=== PATIENT | male | born 2000 | race Hispanic/Latino ===

== ENCOUNTER 2018-02-20 20:16 | Emergency (ER) | payer OTHER, SELFPAY ==
[2018-02-20] MEDS ORDERED: NA CHLORIDE 0.9% 1,000 ML ONE (23:31)
[2018-02-20 23:39] LABS: Absolute Lymphocytes (CBC) 0.6 K/uL (0.7-4.9); Absolute Monocytes 0.6 K/uL (0.1-1.3); Absolute Neutrophil 13.5 K/uL (1.8-8.0); Basophils % 0.4 % (0-1.3); Hematocrit 44.3 % (39.6-49.0); Lymphocytes % 4.2 % (15.3-44.8); MPV 8.4 fL (7.6-11.3); Monocytes % 3.9 % (3.3-12.3); RBC Red Blood Cell Count 4.93 M/uL (4.33-5.43)
[2018-02-20 23:51] LABS: BUN Blood Urea Nitrogen 16 mg/dL (7-18); Bicarbonate 26 mmol/L (21-32); Glucose Level 94 mg/dL (74-106); Magnesium 2.3 mg/dL (1.8-2.4); Potassium 3.9 mmol/L (3.5-5.1); Sodium Level 141 mmol/L (136-145)
[2018-02-20 23:54] LABS: Blood Morphology Comment NOT SEEN (NOT SEEN); Platelet Estimate ADEQ; Urine White Blood Cell Casts OK
[2018-02-21 01:33] LABS: Urine Blood NEGATIVE (NEG); Urine Glucose NEGATIVE (NEG); Urine Protein NEGATIVE (NEG); Urine Specific Gravity 1.025 (1.005-1.030); Urine pH 5.5 (5.0-7.0)
--- NOTE | 2018-02-21 02:34 | ER ---
Nurse's Notes [facility] Name: Luis Vences Age: 17 yrs Sex: Male : 2000 Arrival Date: 02/20/2018 Time: 20:18 Bed 25 Private MD: Diagnosis: Bitten by dog;Laceration of lip and oral cavity without foreign body-due to dog bite;Syncope and collapse Presentation: 02/20 20:24 Presenting complaint: Patient states: He was at home and he stood up quickly, and he aj1 got dizzy and then he fell and when he did his dog bit him in the face. Denies losing consciousness. Denies hitting head. Laceration noted to lower lip, upper lip and to gums, bleeding lightly at this time. Transition of care: patient was not received from another setting of care. Onset of symptoms was February 20, 2018. Risk Assessment: Do you want to hurt yourself or someone else? Patient reports no desire to harm self or others. Initial Sepsis Screen: Does the patient meet any 2 criteria? HR > 90 bpm. No. Patient's initial sepsis screen is negative. Does the patient have a suspected source of infection? Yes: Skin breakdown/wound. Care prior to arrival: None. 20:24 Method Of Arrival: Ambulatory aj1 20:24 Acuity: VIVIEN 4 aj1 Triage Assessment: 20:28 Bite description: bite sustained to gums, upper vermilion border and lower vermilion aj1 border by a dog, animal information: Appearance: appeared well, vaccination(s) is not up to date. General: Appears in no apparent distress. comfortable, Behavior is calm, cooperative, appropriate for age. Pain: Denies pain. Neuro: Level of Consciousness is awake, alert, obeys commands. Cardiovascular: Patient's skin is warm and dry. Respiratory: Airway is patent Respiratory effort is even, unlabored, Respiratory pattern is regular, symmetrical. Historical: - Allergies: 20:28 No Known Allergies; aj1 - Home Meds: 20:28 None [Active]; aj1 - PMHx: 20:28 None; aj1 - Immunization history:: Last tetanus immunization: unknown. - Social history:: Smoking status: Patient/guardian denies using tobacco. - Ebola Screening: : Patient denies travel to an Ebola-affected area in the 21 days before illness onset. Screenin:39 Abuse screen: Denies threats or abuse. Nutritional screening: No deficits noted. ea Tuberculosis screening: No symptoms or risk factors identified. Fall Risk None identified. Assessment: 22:39 General: Appears in no apparent distress. Behavior is calm, cooperative, appropriate ea for age. Pain: Denies pain. Neuro: Level of Consciousness is awake, alert, obeys commands, Oriented to person, place, time, situation. Neuro: Reports dizziness, a syncopal episode. Cardiovascular: Patient's skin is warm and dry. Respiratory: Airway is patent Respiratory effort is even, unlabored, Respiratory pattern is regular, symmetrical, Breath sounds are clear bilaterally. GI: Abdomen is non-distended. Derm: Skin puncture to left lower lip Skin is dry, Skin is normal, Skin temperature is warm. Musculoskeletal: Circulation, motion, and sensation intact. 02/21 00:16 Reassessment: Patient and/or family updated on plan of care and expected duration. Pain ea level reassessed. Patient is alert, oriented x 3, equal unlabored respirations, skin warm/dry/pink. Returned from CT. 01:16 Reassessment: Patient and/or family updated on plan of care and expected duration. Pain ea level reassessed. Patient is alert, oriented x 3, equal unlabored respirations, skin warm/dry/pink. Pt resting with eyes closed, respirations even and unlabored, chest expansions even and symmetrical. No s/s of pain or discomfort noted at this time. Mother at bedside. 02:23 Reassessment: No changes from previously documented assessment. Patient and/or family ea updated on plan of care and expected duration. Pain level reassessed. 02:53 Reassessment: Patient and/or family updated on plan of care and expected duration. Pain ea level reassessed. Patient is alert, oriented x 3, equal unlabored respirations, skin warm/dry/pink. Discharge instructions given to patient and mother, both verbalized the understanding of instruction. Awaiting of IV antibiotic completion. Vital Signs: 02/20 20:28 BP 154 / 89; Pulse 102; Resp 18; Temp 98.0; Pulse Ox 99% on R/A; Weight 68.95 kg (R); aj1 Height 5 ft. 8 in. (172.72 cm) (R); Pain 0/10; 21:57 BP 146 / 83; Pulse 100; Resp 20; Temp 98.0(O); Pulse Ox 99% on R/A; jb5 22:30 BP 130 / 75 Sitting; Pulse 86; Resp 18; Pulse Ox 99% on R/A; ea 22:31 BP 129 / 59 Supine; Pulse 77; Resp 18; Pulse Ox 99% ; ea 22:36 BP 140 / 75 Standing; Pulse 80; Resp 18; Pulse Ox 99% ; ea 23:38 BP 122 / 59; Pulse 70; Resp 18; Pulse Ox 99% on R/A; ea 02/21 00:41 BP 142 / 83; Pulse 65; Resp 18; Pulse Ox 99% on R/A; ea 01:16 BP 129 / 72; Pulse 68; Resp 18; Pulse Ox 99% on R/A; ea 02:22 BP 118 / 68; Pulse 70; Resp 18; Pulse Ox 99% ; ea 02:45 BP 131 / 80; Pulse 80; Resp 19; Pulse Ox 100% ; ea 03:09 BP 127 / 79; Pulse 78; Resp 18; Temp 97.8(O); Pulse Ox 99% ; ea 02/20 20:28 Body Mass Index 23.11 (68.95 kg, 172.72 cm) aj1 ED Course: 02/20 20:18 Patient arrived in ED. ag3 20:27 Triage completed. aj1 20:28 Arm band placed on Patient placed in waiting room, Patient notified of wait time. aj1 21:57 Sushant Bowen PA is PHCP. cp 21:57 Rey Milligan MD is Attending Physician. cp 22:32 Celia Quniteros RN is Primary Nurse. ea 22:39 Patient has correct armband on for positive identification. Bed in low position. Call ea light in reach. Side rails up X2. 23:15 Inserted saline lock: 20 gauge in left antecubital area, using aseptic technique. Blood ea collected. 23:48 Irrigation on mouth Patient tolerated well. jb5 23:48 Wound care: to puncture. jb5 23:[address] via wheelchair. kw1 02/21 00:06 CT completed. Patient tolerated procedure well. Patient moved back from CT. kw1 00:12 CT Head Brain wo Cont In Process Unspecified. EDMS 00:12 CT Facial Bones W/O Con In Process Unspecified. EDMS 01:10 X-ray completed. Portable x-ray completed in exam room. Patient tolerated procedure sg4 well. 01:11 XRAY Chest (1 view) In Process Unspecified. EDMS 02:47 No provider procedures requiring assistance completed. ea 03:09 IV discontinued, intact, bleeding controlled, No redness/swelling at site. Pressure ea dressing applied. Administered Medications: 02/20 23:32 Drug: NS 0.9% 1000 ml Route: IV; Rate: 1 bolus; Site: left antecubital; ea 02/21 00:31 Follow up: Response: No adverse reaction; IV Status: Completed infusion; IV Intake: ea 1000ml 02:41 Drug: Clindamycin 600 mg Route: IVPB; Infused Over: 30 mins; Site: left antecubital; ea 03:09 Follow up: Response: No adverse reaction; IV Status: Completed infusion ea Intake: 00:31 IV: 1000ml; Total: 1000ml. ea Outcome: 02:33 Discharge ordered by MD. cp 02:53 Condition: improved ea 02:53 Discharge instructions given to patient, family, Instructed on discharge instructions, follow up and referral plans. medication usage, Demonstrated understanding of instructions, follow-up care, medications, Prescriptions given X 1. 03:12 Discharged to home ambulatory, with family. ea 03:13 Patient left the ED. ea Signatures: Dispatcher [employer] EDMS Queenie Thompson, RN RN leif1 Sushant Bowen PA PA cp Broussard, Jennifer jb5 Celia Quinteros RN RN ea Wilhelm, Kimberly kw1 Gomez, Alice ag3 Melyssa Weaver sg4
--- NOTE | 2018-02-21 02:34 | EDPHYS ---
Physician Documentation [facility] Name: Luis Vences Age: 17 yrs Sex: Male : 2000 Arrival Date: 02/20/2018 Time: 20:18 Bed 25 Private MD: ED Physician Rey Milligan HPI: 02/20 22:20 This 17 yrs old Male presents to ER via Ambulatory with complaints of Dog Bite.cp 22:20 The patient was bitten on the mouth. Onset: The symptoms/episode began/occurred just cp prior to arrival. Animal information: family pet of patient. Secondary to the bite the patient reports multiple lacerations, that are superficial, that are deep, swelling. Associated signs and symptoms: Pertinent negatives: fever. 22:20 The patient has experienced syncope, lost consciousness. Duration: This was a single cp episode, that lasted an unknown period of time. 22:20 Associated injury: Head/face: left cheek, swelling, tenderness. Current symptoms: cp Currently, the patient is not experiencing any symptoms. Patient reports he stood up quickly while at home, started to walk and became lightheaded. Patient reports falling to ground and then pet dog biting him on the face. Historical: - Allergies: 20:28 No Known Allergies; aj1 - Home Meds: 20:28 None [Active]; aj1 - PMHx: 20:28 None; aj1 - Immunization history:: Last tetanus immunization: unknown. - Social history:: Smoking status: Patient/guardian denies using tobacco. - Ebola Screening: : Patient denies travel to an Ebola-affected area in the 21 days before illness onset. ROS: 22:25 Constitutional: Negative for body aches, chills, fever, poor PO intake. cp 22:25 Eyes: Negative for injury, pain, redness, and discharge. cp Exam: 22:30 Constitutional: The patient appears in no acute distress, alert, awake, cp non-diaphoretic, non-toxic, well developed, well nourished. 22:30 Eyes: Pupils equal round and reactive to light, extra-ocular motions intact. Lids and cp lashes normal. Conjunctiva and sclera are non-icteric and not injected. Cornea within normal limits. Periorbital areas with no swelling, redness, or edema. 22:30 Head/face: Noted is a laceration(s), that is superficial, that is linear, of the below right side bottom lip, swelling, that is mild, of the forehead and left cheek, Sinus tenderness, that is mild, is located over the left maxillary sinus. 22:30 ENT: External ear(s): are unremarkable, Ear canal(s): are normal, clear, TM's: dullness, bilaterally, Nose: is normal, Mouth: Lips: moist, lacerated, inner right side bottom lip, Oral mucosa: moist, Posterior pharynx: Airway: no evidence of obstruction, patent, Uvula: midline, swelling, is not appreciated, erythema, is not appreciated, Dental exam: no acute changes. 22:30 Neck: C-spine: vertebral tenderness, is not appreciated, crepitus, is not appreciated, ROM/movement: is normal, is supple, without pain, no nuchal rigidity, nuchal rigidity. 22:30 Chest/axilla: Inspection: normal, Palpation: is normal, no crepitus, no tenderness. cp 22:30 Cardiovascular: Rate: normal, Rhythm: regular, Pulses: Pulses are 2+ in right radial artery and left radial artery. Heart sounds: murmur, not appreciated, rub, not appreciated, gallop, not appreciated, Edema: is not appreciated, JVD: is not appreciated. 22:30 Respiratory: the patient does not display signs of respiratory distress, Respirations: normal, no use of accessory muscles, no retractions, no splinting, no tachypnea, labored breathing, is not present, Breath sounds: are clear throughout, no decreased breath sounds, no stridor, no wheezing. 22:30 Abdomen/GI: Inspection: abdomen appears normal, Bowel sounds: active, all quadrants, Palpation: abdomen is soft and non-tender, in all quadrants, rebound tenderness, is not appreciated, voluntary guarding, is not appreciated, involuntary guarding, is not appreciated. 22:30 Back: pain, is absent, ROM is normal. 22:30 Neuro: Orientation: to person, place \T\ time. Mentation: is normal, Cerebellar function: is grossly normal, Motor: is normal, Sensation: is normal, Gait: is steady, at a normal pace, without difficulty. 23:10 ECG was reviewed by the Attending Physician. cp Vital Signs: 20:28 BP 154 / 89; Pulse 102; Resp 18; Temp 98.0; Pulse Ox 99% on R/A; Weight 68.95 kg (R); aj1 Height 5 ft. 8 in. (172.72 cm) (R); Pain 0/10; 21:57 BP 146 / 83; Pulse 100; Resp 20; Temp 98.0(O); Pulse Ox 99% on R/A; jb5 22:30 BP 130 / 75 Sitting; Pulse 86; Resp 18; Pulse Ox 99% on R/A; ea 22:31 BP 129 / 59 Supine; Pulse 77; Resp 18; Pulse Ox 99% ; ea 22:36 BP 140 / 75 Standing; Pulse 80; Resp 18; Pulse Ox 99% ; ea 23:38 BP 122 / 59; Pulse 70; Resp 18; Pulse Ox 99% on R/A; ea 02/21 00:41 BP 142 / 83; Pulse 65; Resp 18; Pulse Ox 99% on R/A; ea 01:16 BP 129 / 72; Pulse 68; Resp 18; Pulse Ox 99% on R/A; ea 02:22 BP 118 / 68; Pulse 70; Resp 18; Pulse Ox 99% ; ea 02:45 BP 131 / 80; Pulse 80; Resp 19; Pulse Ox 100% ; ea 03:09 BP 127 / 79; Pulse 78; Resp 18; Temp 97.8(O); Pulse Ox 99% ; ea 02/20 20:28 Body Mass Index 23.11 (68.95 kg, 172.72 cm) aj1 MDM: 02/20 21:57 Patient medically screened. cp 02/21 02:30 Data reviewed: vital signs, nurses notes, lab test result(s), EKG, radiologic studies, cp CT scan, plain films. 02:30 Test interpretation: by ED physician or midlevel provider: ECG, plain radiologic cp studies. Counseling: I had a detailed discussion with the patient and/or guardian regarding: the historical points, exam findings, and any diagnostic results supporting the discharge/admit diagnosis, lab results, radiology results, to return to the emergency department if symptoms worsen or persist or if there are any questions or concerns that arise at home. Special discussion: I discussed in detail with the patient the higher chance of wound infection based on his presenting history. ED course: VSS. Wounds cleaned and dressed. Discussed results of labs, EKG and radiology studies. Will discharge patient to home for continued monitoring. 02/20 23:00 Order name: CBC with Diff; Complete Time: 00:08 cp 02/21 00:08 Interpretation: Normal except: WBC 14.8; MARY CARMEN% 91.5; LYM% 4.2; NEUT A 13.5. cp 02/20 23:00 Order name: BMP; Complete Time: 00:08 cp 02/20 22:59 Order name: CT Head Brain wo Cont cp 02/20 23:00 Order name: Magnesium; Complete Time: 00:08 cp 02/20 23:54 Order name: CBC Smear Scan; Complete Time: 00:08 EDMS 02/21 00:47 Order name: Urine Dipstick--Ancillary (enter results) em1 02/20 22:14 Order name: Orthostatics; Complete Time: 22:36 cp 02/20 22:59 Order name: CT Facial Bones W/O Con cp 02/20 22:59 Order name: EKG; Complete Time: 23:01 cp 02/20 22:59 Order name: EKG - Nurse/Tech; Complete Time: 23:21 cp 02/20 23:00 Order name: Wound Care: please clean and irrigate facial wounds; Complete Time: 00:05 cp 02/21 00:13 Order name: XRAY Chest (1 view) cp 02/21 00:09 Order name: Urine Dipstick-Ancillary (obtain specimen); Complete Time: 00:42 cp EC/04 23:10 Rate is 78 beats/min. Rhythm is regular. DE interval is normal. QRS interval is normal. cp QT interval is normal. T waves are Inverted in lead aVL. Interpreted by me. Reviewed by me. Administered Medications: 23:32 Drug: NS 0.9% 1000 ml Route: IV; Rate: 1 bolus; Site: left antecubital; ea 02/21 00:31 Follow up: Response: No adverse reaction; IV Status: Completed infusion; IV Intake: ea 1000ml 02:41 Drug: Clindamycin 600 mg Route: IVPB; Infused Over: 30 mins; Site: left antecubital; ea 03:09 Follow up: Response: No adverse reaction; IV Status: Completed infusion ea Disposition: 03:19 Co-signature as Attending Physician, Rey Milligan MD. pkl Disposition: 02/21/18 02:33 Discharged to Home. Impression: Bitten by dog, Laceration of lip and oral cavity without foreign body - due to dog bite, Syncope and collapse. - Condition is Stable. - Discharge Instructions: Facial Laceration, Syncope, Animal Bite. - Prescriptions for Clindamycin HCl 300 mg Oral Capsule - take 1 capsule by ORAL route every 6 hours for 10 days; 40 capsule. - Medication Reconciliation Form, Thank You Letter, Antibiotic Education, Prescription Opioid Use, Work release form, Family Work Release form. - Follow up: Private Physician; When: 2 - 3 days; Reason: Wound Recheck, Recheck today's complaints. - Problem is new. - Symptoms have improved. Signatures: Dispatcher [employer] EDMS Queenie Thompson RN RN aj1 Rey Milligan MD MD pkl Page, Corey, PA PA cp Antunez, Elena RN RN marietta Corrections: (The following items were deleted from the chart) 02:34 02:33 02/21/2018 02:33 Discharged to Home. Impression: Bitten by dog; Laceration of lip cp and oral cavity without foreign body - due to dog bite. Condition is Stable. Forms are Medication Reconciliation Form, Thank You Letter, Antibiotic Education, Prescription Opioid Use. Follow up: Private Physician; When: 2 - 3 days; Reason: Wound Recheck, Recheck today's complaints. Problem is new. Symptoms have improved. cp 03:13 02:34 02/21/2018 02:33 Discharged to Home. Impression: Bitten by dog; Laceration of lip ea and oral cavity without foreign body - due to dog bite; Syncope and collapse. Condition is Stable. Forms are Medication Reconciliation Form, Thank You Letter, Antibiotic Education, Prescription Opioid Use. Follow up: Private Physician; When: 2 - 3 days; Reason: Wound Recheck, Recheck today's complaints. Problem is new. Symptoms have improved. cp
[2018-02-21] MEDS ORDERED: CLINDAMYCIN 600MG/D5W 600 MG/50 ML BAG IV ONE (02:47)
--- NOTE | 2018-02-21 10:03 | RAD REPORT ---
EXAM DESCRIPTION: CT - Facial Bones W/ Mpr - 02/21/2018 6:21 am CLINICAL HISTORY: Facial injury status post fall. Facial pain COMPARISON: None TECHNIQUE: Computed axial tomography of the face was obtained. Coronal and sagittal reconstruction w as performed. Preliminary report generated by virtual radiologic and review prior to dictation All CT scans are performed using dose optimization technique as appropriate and may include automated exposure control or mA/KV adjustment according to patient size. FINDINGS: A fracture is not seen. A TMJ dislocation is not noted. The globes are intact. Fluid within the sinuses is not seen. Edema is present within the tissues of lips. IMPRESSION: Negative for a facial fracture.
--- NOTE | 2018-02-21 10:06 | RAD REPORT ---
EXAM DESCRIPTION: CT - Head Brain Wo Cont - 02/21/2018 6:20 am CLINICAL HISTORY: Head injury status post fall. Headache COMPARISON: None. TECHNIQUE: Computed axial tomography of the head was obtained. IV contrast was not requested. Prelim inary report generated by virtual radiologic and review prior to dictation All CT scans are performed using dose optimization technique as appropriate and may include automated exposure control or mA/KV adjustment according to patient size. FINDINGS: An intracranial bleed is not seen . The ventricles are normal in caliber. No extra-axial fluid collection is noted. Fluid within the sinuses/ mastoids is not seen. IMPRESSION: No acute intracranial abnormality is seen. If patient's symptoms persist MRI of the bra in would be recommended.
--- NOTE | 2018-02-21 10:29 | RAD REPORT ---
EXAM DESCRIPTION: [place] Single View02/21/2018 1:11 am CLINICAL HISTORY: Chest pain COMPARISON: none FINDINGS: The lungs appear clear of acute infiltrate. The heart is normal size IMPRESSION: No acute abnormalities displayed
--- NOTE | 2018-02-21 13:55 | EKG ---
Test Date: 2018-02-20 Test Time: 23:04:06 Photo Printer: DARELL MEASUREMENT RESULTS: Intervals: Rate: 78 NC: 152 QRSD: 86 QT: 362 QTc: 412 [place]: P: 85 NC: 152 QRS: 88 T: 70 INTERPRETIVE STATEMENTS: Normal sinus rhythm Normal ECG No previous ECG available for comparison Electronically Signed On 02-21-18 13:53:46 CUT OUT STITCHER by Benjamín Chua
== END 2018-02-21 03:13 | disposition home or self-care (01) ==
LOC: ER 20:16
DX: S01.511A Laceration without foreign body of lip, initial encounter (principal); S01.512A Laceration without foreign body of oral cavity, initial encounter; W54.0XXA Bitten by dog, initial encounter; Y93.89 Activity, other specified; Y92.9 Unspecified place or not applicable
CPT/HCPCS: 36415; 70450; 70486; 71045; 76377; 80048; 81003; 83735; 85025; 93005; 96361; 96365; 99285; J7030